=== PATIENT | female | born 1970 | race Asian ===

== ENCOUNTER 2024-05-02 05:55 | Day surgery (SDC) | payer BC ==
[~2024-05-02] VITALS: Ht 160 cm; Wt 62.6 kg
[2024-05-02] MEDS ORDERED: LR 1,000 ML IV SCH ×2 (07:00→08:15)
[2024-05-02] MEDS ORDERED: CEFAZOLIN SOD 2 GM in D5W 50 ML IV ONE (07:00)
[2024-05-02 08:00] VITALS: O2SAT 99
[2024-05-02] MEDS ORDERED: hydrALAZINE HCL 20 MG/ML VIAL IVP PRN (08:15)
[2024-05-02] MEDS ORDERED: LABETALOL 100 MG/ 20ML VIAL IVP PRN (08:15)
[2024-05-02] MEDS ORDERED: MEPERIDINE HCL/PF 25 MG/ML DISP.SYRIN IVP PRN (08:15)
[2024-05-02] MEDS ORDERED: METOCLOPRAMIDE HCL 10 MG/2 ML VIAL IVP PRN (08:15)
[2024-05-02] MEDS ORDERED: HYDROmorphone 1 MG/ML INJ. CARTRIDGE IVP PRN ×2 (08:15)
[2024-05-02] MEDS ORDERED: ACETAMINOPHEN I.V. 1000 MG 100 ML IV ONE (08:31)
[2024-05-02] MEDS ORDERED: DEXAMETHASONE SOD PHOSPHATE 4 MG/ML VIAL ONE (09:44)
[2024-05-02] MEDS ORDERED: HYDROcodone/ACETAMIN 5-325 MG TAB (NORCO/ VICODIN) PO PRN (10:00)
[2024-05-02] MEDS ORDERED: D5/0.45 NS 1,000 ML IV SCH (10:00)
[2024-05-02] MEDS: HYDROmorphone 1 MG/ML INJ. CARTRIDGE ONE (10:40)
[2024-05-02 13:08] VITALS: BP_SYST 127; PULSE 70; RESP 16; TEMP 97.4
[2024-05-02] MEDS ORDERED: HYDROcodone/ACETAMIN 5-325 MG TAB (NORCO/ VICODIN) ONE (13:28)
[2024-05-02] MEDS: HYDROcodone/ACETAMIN 5-325 MG TAB (NORCO/ VICODIN) PO PRN (13:30)
[2024-05-02] MEDS: METOCLOPRAMIDE HCL 10 MG/2 ML VIAL ONE (13:45)
== END 2024-05-02 14:40 | disposition home or self-care (01) ==
LOC: SMU 05:55 → SDS 05:55
PROVIDERS: ATTEND Colon & Rectal Surgery
DX: K80.10 Calculus of gallbladder with chronic cholecystitis without obstruction (principal); M67.441 Ganglion, right hand; K21.9 Gastro-esophageal reflux disease without esophagitis; E78.5 Hyperlipidemia, unspecified; J45.909 Unspecified asthma, uncomplicated; Z98.891 History of uterine scar from previous surgery; Z90.89 Acquired absence of other organs; Z82.49 Family history of ischemic heart disease and other diseases of the circulatory system; Z83.3 Family history of diabetes mellitus; Z83.438 Family history of other disorder of lipoprotein metabolism and other lipidemia
CPT/HCPCS: 87081; 47563; 26160; 88304; J3490 ×2; J0690; J1100; J1885; J2765; J3465; J2405; J2704; J3010; J1170; Q9967; J7060; J7120; J7030; C1758; C1727; J0131; S2900; 76000